=== PATIENT | male | born 1935 | race Caucasian/White ===

== ENCOUNTER → 2017-12-31 | Day surgery (SDC) | payer MEDICARE, BC ==
[~2017-12-31] VITALS: Ht 170.2 cm; Wt 91.0 kg
[~2017-12-31] MED LIST: AMLO2.5T PO; ARTI1DRO EACH EYE; CHLORHEXIDINE GLUCONATE 2 % 1 PACK (2 CLOTHS) TOPICAL PRN; CYCLOPENTOLATE HCL 1% OPHT SOLN 2 ML BTL ONE; EPINEPHrine HCL PF/SF (1:1000) 1 MG/ML AMP I-OCULAR ONE; EPINEPHrine-Lidocaine/BSS (PF/SF) 4-120 mg/16 mL OPTH SYR ONE; EPINEPHrine-Lidocaine/BSS (PF/SF) 4-120 mg/16 mL OPTH SYR RIGHT EYE ONE; HYALURONIDASE/LIDOCAINE/BUPIVACAINE 5 ML SYR RIGHT EYE ONE; LACTATED RINGER'S 1000 ML IV PRN; LOSA100T PO; LOSA100T3 PO; METF500T PO; METOPROLOL TARTRATE 25 MG TAB PO PRN; OMEP20TA93 PO; PHENYLEPHRINE HCL 10% OPTH SOLN 5 ML BTL ONE; POTA8CAP PO; POVIDONE IODINE 5% (ANTISEPSIS KIT) 4 APPLICATIONS EACH NARE PRN; PRAV20TA2 PO; PRESCAP6 PO; PROPOFOL 200 MG/20 ML AMP ONE; ROSU1TAB8 PO; SODIUM CHLORID 0.9% 500 ML IV PRN; TAMS0.4C4 PO; TEMA15CA PO; TETRACAINE 0.5% OPTH SOLN 4 ML BTL ONE; TIMO0.5S30 EACH EYE; TOBRAMYCIN/DEXAMETHASONE OPTH OINT 3.5 GM TUBE ONE; TROPICAMIDE 1% OPHT SOLN 15 ML BTL ONE; VISCOAT OPHT IRRIG SOLN 0.75 ML SYRINGE ONE; XARE20TA PO
[2017-12-31 06:52] VITALS: PULSE 75
[2017-12-31] MEDS: CYCLOPENTOLATE HCL 1% OPHT SOLN 2 ML BTL RIGHT EYE SCH ×3 (07:00→07:10)
[2017-12-31] MEDS: PHENYLEPHRINE HCL 10% OPTH SOLN 5 ML BTL RIGHT EYE SCH ×3 (07:00→07:10)
[2017-12-31] MEDS: TETRACAINE 0.5% OPTH SOLN 4 ML BTL RIGHT EYE SCH ×3 (07:00→07:10)
[2017-12-31] MEDS: TROPICAMIDE 1% OPHT SOLN 15 ML BTL RIGHT EYE SCH ×3 (07:00→07:10)
[2017-12-31 07:24] VITALS: PULSE 68
[2017-12-31 09:10] VITALS: BP 129/71; PULSE 74; RESP 16; TEMP 97.6; O2SAT 94
--- NOTE | 2017-12-31 09:42 | PD.OP ---
Operative Report Date of Surgery: Dec 31, 2017 Preoperative Diagnosis: (1) Nuclear sclerotic cataract of right eye Postoperative Diagnosis: (1) Pseudophakia of right eye Procedure: phacoemulsification and intraocular lens implant right eye Anesthesia: retrobulbar block, MAC Surgeon: Ivette Hoffman Complex Care Nurse(s): None Operation and Findings: Patient was consented for surgery, given a retrobulbar block by anesthesia, and taken back to the operating room. He was prepped and draped in the usual sterile fashion for ophthalmic surgery. A wire lid speculum was placed in the right eye. A paracentesis incision was created at the 11 o'clock position on the limbus. Vision blue dye, intracameral epishugarcaine, and viscoelastic was injected into the anterior chamber. The main incision was created at the 8 o' clock position on the limbus with a 2.4 mm keratome. A continuous curvilinear capsulorrhexis was made on the anterior lens capsule. Hydrodissection was used to separate the lens from the capsule. Phacoemulsification was used to remove the lens nucleus material. Irrigation and aspiration was used to remove the remaining cortical material. The lens implant ([id number] 20.0 D SN [id number]) was placed in the capsular bag. Viscoelastic was removed with irrigation and aspiration. The incisions were irrigated and found to be watertight. Tobradex ointment, a patch, and shield were placed on the right eye. The patient was sent to PACU in stable condition. Ivette Hoffman MD Dec 31, 2017 09:42
== END | disposition home or self-care (01) ==
LOC: PHSDC 06:25
PROVIDERS: ATTEND Ophthalmology
DX: H25.11 Age-related nuclear cataract, right eye (principal); Z96.1 Presence of intraocular lens
CPT/HCPCS: 00142; 66984; J0171; J7040; V2632